=== PATIENT | female | born 1950 | race Caucasian/White ===

== ENCOUNTER 2021-03-28 10:59 | Day surgery (SDC) | payer MEDICARE, BC ==
[2021-03-27 12:28] VITALS: BMI 29.7
[2021-03-28 12:57] LABS: Hemoglobin 13.8 g/dL (12.0-16.0)
[2021-03-28 13:14] LABS: Anion Gap 14 mmol/L (10-20); BUN (Urea Nitrogen) 22 mg/dL (9.8-20.1); Calc. Creatinine Clearance 61 mL/min (70-130); Calcium 10.2 mg/dL (7.8-10.44); Carbon Dioxide 28 mmol/L (23-31); Chloride 100 mmol/L (98-107); Glucose 115 mg/dL (83-110); Potassium 3.8 mmol/L (3.5-5.1); Sodium 138 mmol/L (136-145)
[2021-03-28] MEDS ORDERED: Propofol 1,000 MG/100 ML VIAL IV ONE (13:29)
[2021-03-28] MEDS ORDERED: Fentanyl 100 MCG/2 ML VIAL ONE (13:29)
[2021-03-28] MEDS ORDERED: EPINEPHrine 1 MG/ML AMP ONE (14:28)
[2021-03-28] MEDS ORDERED: Ondansetron PF 4 MG/2 ML Vial ONE (14:38)
[2021-03-28] MEDS ORDERED: Succinylcholine 200 MG/10 ml SYRINGE FS ONE (14:38)
[2021-03-28] MEDS ORDERED: Lidocaine 1% PF 5 ML VIAL ONE (14:38)
[2021-03-28] MEDS ORDERED: PROPOFOL 200 MG/20 ML VIAL ONE (14:38)
[2021-03-28] MEDS ORDERED: Dexamethasone 20 MG/5 ML VIAL ONE (14:38)
[2021-03-28] MEDS ORDERED: Silver Nitrate Application 1 EACH ONE ×2 (14:57→15:00)
== END 2021-03-28 17:50 | disposition home or self-care (01) ==
LOC: SDC 10:59
PROVIDERS: ATTEND Otolaryngology Plastic Surgery within the Head & Neck
PROC: 0CBV8ZZ Excision of Left Vocal Cord, Via Natural or Artificial Opening Endoscopic (ICD-10-PCS; principal; 2021-03-28)
DX: J38.1 Polyp of vocal cord and larynx (principal); I10 Essential (primary) hypertension; E11.9 Type 2 diabetes mellitus without complications; M19.90 Unspecified osteoarthritis, unspecified site; F17.210 Nicotine dependence, cigarettes, uncomplicated; G47.33 Obstructive sleep apnea (adult) (pediatric); E66.3 Overweight; Z68.29 Body mass index [BMI] 29.0-29.9, adult; Z79.1 Long term (current) use of non-steroidal anti-inflammatories (NSAID); Z79.4 Long term (current) use of insulin; Z79.899 Other long term (current) drug therapy; Z88.5 Allergy status to narcotic agent
CPT/HCPCS: 36416; 80048; 85014; 85018; 88305; 93005; 93010; J0171; J1100; J2405; J2704; J3010